=== PATIENT | female | born 1960 | race African-American/Black ===

== ENCOUNTER 2017-12-24 15:45 | Emergency (ER) | payer OTHER ==
[~2017-12-24] VITALS: Ht 172.7 cm; Wt 97.5 kg
--- NOTE | ~2017-12-24 | EKG ---
[place] [address] [facility] Fwd: [place] [address] ELECTROCARDIOGRAM REPORT Name: CESAR DALLAS Room #: [facility]#: [id number] Admission: 12/24/17 Attend Phys: Discharge: Date of : 58 Report #: [id number] THIS REPORT FOR: //name// [facility] ED Test Date: 2017-12-24 Test Time: 16:23:50 Pat Name: CESAR DALLAS Department: Room: Gender: F [employer] P[employer]her: Deepa RODRIGUEZ : 1960 Requested By: Juan Ward Order Number: [id number] MD: Prince Guevara Measurements Intervals [place] Rate: 61 P: 34 VA: 155 QRS: 13 QRSD: 88 T: 69 QT: 395 QTc: 398 Interpretive Statements Sinus rhythm Left ventricular hypertrophy Compared to ECG 06/19/2009 12:32:23 Left ventricular hypertrophy now present T-wave abnormality no longer present Prolonged QT interval no longer present Electronically Signed On 12-24-2017 21:30:01 CDT by Prince Guevara [email or web address] <ELECTRONICALLY SIGNED> By: Prince Guevara MD 12/24/170 1623 162 Prince Guevara MD /MATTHEW
[2017-12-24 16:13] LABS: HEMATOCRIT 40.8 % (37.0-47.0); HEMOGLOBIN 13.7 gm/dL (12.0-15.0); MCH 32.2 pg (26.0-34.0); MCHC 33.6 g/dL (28.0-37.0); MCV 95.9 fL (80.0-100.0); RBC 4.26 mil/uL (4.20-5.00); RDW 13.4 % (10.5-14.5)
[2017-12-24 16:21] LABS: ANION GAP 7 mmol/L (7-16); BUN 17 mg/dL (7-18); CALCIUM 9.3 mg/dL (8.5-10.1); CHLORIDE 105 mmol/L (98-107); CO2 28 mmol/L (21-32); CREATININE 1.5 mg/dL (0.6-1.0); GLUCOSE 144 mg/dL (74-106); POTASSIUM 3.9 mmol/L (3.5-5.1); SODIUM 140 mmol/L (136-145)
[2017-12-24 16:30] LABS: TROPONIN-I < 0.04 ng/mL (<0.06)
[2017-12-24 17:28] LABS: URINE BILIRUBIN NEGATIVE (Negative); URINE BLOOD NEGATIVE (Negative); URINE CLARITY CLEAR; URINE COLOR YELLOW; URINE GLUCOSE-RANDOM* NEGATIVE (Negative); URINE KETONES NEGATIVE (Negative); URINE LEUKOCYTES NEGATIVE (Negative); URINE NITRITE NEGATIVE (Negative); URINE PROTEIN (DIPSTICK) TRACE (Negative); URINE SPECIFIC GRAVITY 1.025 (1.005-1.035); URINE UROBILINOGEN 0.2 E.U./dl (0.2-1.0)
[2017-12-24] MEDS ORDERED: AMLODIPINE BESY10 MG PO (17:55)
[2017-12-24] MEDS ORDERED: NORTRIPTYLINE H50 M3 PO (17:55)
[2017-12-24] MEDS ORDERED: LISINOPRIL40 MG PO (17:55)
[2017-12-24 20:00] VITALS: BP 135/87
== END 2017-12-24 19:50 | disposition home or self-care (01) ==
LOC: ER 15:45
PROVIDERS: Physician Assistant
DX: R56.9 Unspecified convulsions (principal); N17.9 Acute kidney failure, unspecified; R51 Headache; R55 Syncope and collapse; M79.605 Pain in left leg; I10 Essential (primary) hypertension; Z88.5 Allergy status to narcotic agent